=== PATIENT | female | born 1945 | race Hispanic/Latino ===

== ENCOUNTER 2016-04-17 13:29 | Outpatient (CLI) | payer MEDICARE ==
--- NOTE | 2016-04-20 07:47 | Vascular Lab Report ---
CAROTID DUPLEX STUDY: RIGHT PSVEDV CCA PROX:8110 CCA DIST:3810 ICA PROX:Reversed flow ICA MID:0 ICA DIST:0 ECA: 141 VERT: 16 4 LEFT PSVEDV CCA PROX:8020 CCA DIST:6619 ICA PROX:9436 ICA MID:7529 ICA DIST:7929 ECA: 163 VERT: 52 20 REASON FOR EXAM: Carotid artery stenosis. COMMENTS ON THE RIGHT: Doppler frequency analysis is consistent with complete occlusion of the internal carotid artery. Severe amount of calcified plaque is noted in the carotid bulb and internal carotid artery. The common carotid artery is patent. The external carotid artery is patent. The vertebral artery has antegrade flow. COMMENTS ON THE LEFT: Doppler frequency analysis is consistent with 16 to 49 percent diameter reduction of the internal carotid artery. Minimal amount of plaque is seen. The common carotid artery is patent. The external carotid artery is patent. The vertebral artery has antegrade flow. 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 If this is a new finding it should be confirmed by a contrast study like a CTA. Sometimes a very severe stenosis can appear as an occlusion on duplex ultrasound. This would have a completely different clinical significance. 16 to 49 percent diameter reduction of the left internal carotid artery. Clinical correlation recommended.
== END 2016-04-17 13:30 | disposition home or self-care (01) ==
LOC: SPVWC 13:29
PROVIDERS: ATTEND Specialist
DX: I63.30 Cerebral infarction due to thrombosis of unspecified cerebral artery (principal)
CPT/HCPCS: 93880